=== PATIENT | male | born 1995 | race Two or more races ===

== ENCOUNTER 2017-02-13 07:30 | Day surgery (SDC) | payer SELFPAY ==
[2017-02-13] MEDS ORDERED: NORMAL SALINE 1000 ML 1,000 ML IV ONE (08:43)
--- NOTE | 2017-02-13 08:47 | ER Document Report ---
ED GI Bleed / Rectal Pain - General Mode of Arrival: Ambulatory Information source: Patient TRAVEL OUTSIDE OF THE [place] IN LAST 30 DAYS: No - HPI Patient complains to provider of: Rectal pain Associated symptoms: Other - See above <MIO SOLO - Last Filed: 02/13/17 08:50> <CONTRERAS SOMMERS - Last Filed: 02/13/17 11:22> - General Chief Complaint: Rectal Pain Stated Complaint: RECTAL PAIN Time Seen by Provider: 02/13/17 08:05 Notes: Patient is a 21 year old male, with no past medical or surgical history, who presents to the emergency department complaining of rectal pain onset 5 days ago. Patient believes he has a hemorrhoid as the pain began after a large bowel movement. Patient denies particularly hard stool. Patient has been using preparation H with no relief. (MIO SOLO) - Related Data Allergies/Adverse Reactions: No Known Allergies Allergy (Unverified 02/13/17 07:35) Home Medications: Current Home Medications No Home Medications 02/13/17 [History] Past Medical History - General Information source: Patient - Social History Smoking Status: Never Smoker Chew tobacco use (# tins/day): No Frequency of alcohol use: None Drug Abuse: None Family History: Reviewed & Not Pertinent Patient has suicidal ideation: No Patient has homicidal ideation: No Surgical Hx: Negative <MIO SOLO - Last Filed: 02/13/17 08:50> Review of Systems - Review of Systems Constitutional: No symptoms reported EENT: No symptoms reported Cardiovascular: No symptoms reported Respiratory: No symptoms reported Gastrointestinal: See HPI, Other - Rectal pain Genitourinary: No symptoms reported Male Genitourinary: No symptoms reported Musculoskeletal: No symptoms reported Skin: No symptoms reported Hematologic/Lymphatic: No symptoms reported Neurological/Psychological: No symptoms reported -: Yes All other systems reviewed and negative <MIO SOLO - Last Filed: 02/13/17 08:50> Physical Exam - Vital signs Interpretation: Normal - General General appearance: Appears well, Alert - HEENT Head: Normocephalic, Atraumatic - Respiratory Respiratory status: No respiratory distress Chest status: Nontender - Cardiovascular Rhythm: Regular Heart sounds: Normal auscultation Murmur: No - Rectal Tenderness: Yes - on left side lcose to anal sphincter is area of induration and swelling Hemorrhoids: None - Extremities General upper extremity: Normal inspection General lower extremity: Normal inspection - Neurological Neuro grossly intact: Yes Cognition: Normal Orientation: AAOx4 [place] Coma Scale Eye Opening: Spontaneous [place] Coma Scale Verbal: Oriented [place] Coma Scale Motor: Obeys Commands [place] Coma Scale Total: 15 Speech: Normal - Psychological Associated symptoms: Normal affect, Normal mood - Skin Skin Temperature: Warm Skin Moisture: Dry Skin Color: Normal <MIO SOLO - Last Filed: 02/13/17 08:50> Course - Consults Dr. Alejandro Time consulted: 08:40 <MIO SOLO - Last Filed: 02/13/17 08:50> - Laboratory Result Diagrams: 02/13/17 09:10 02/13/17 09:10 <CONTRERAS SOMMERS - Last Filed: 02/13/17 11:22> - Vital Signs Vital signs: Temp Pulse Resp BP Pulse Ox 98.6 F 80 16 137/59 H 99 02/13/17 09:31 02/13/17 09:31 02/13/17 09:31 02/13/17 09:31 02/13/17 09:31 - Laboratory Laboratory results interpreted by me: 02/13/17 02/13/17 09:10 09:10 Plt Count 101 L Seg Neutrophils % 80.3 H Lymphocytes % 9.5 L Absolute Neutrophils 8.4 H Total Bilirubin 1.7 H - Consults Dr. Alejandro Reason for consultation: 02/13/17 08:[address] Alejandro who requests he be made NPO and will come examine patient (MIO SOLO) Discharge <MIO SOLO - Last Filed: 02/13/17 08:50> - Discharge Admitting Provider: Surgicalist Unit Admitted: OR <CONTRERAS SOMMERS - Last Filed: 02/13/17 11:22> - Discharge Clinical Impression: Perianal abscess Condition: Stable Disposition: ADMITTED INPATIENT Scribe Attestation: 02/13/17 11:22 I personally performed the services described in the documentation, reviewed and edited the documentation which was dictated to the scribe in my presence, and it accurately records my words and actions. (CONTRERAS SOMMERS) Scribe Documentation - Scribe Written by Scribe:: dayan Olivares, 02/13/17, 0847 acting as scribe for :: aMrsha <MIO SOLO - Last Filed: 02/13/17 08:50>
--- NOTE | 2017-02-13 09:28 | HISTORY AND PHYSICAL E ---
History and Physical NAME: ANGEL CROW : 1995 AGE: 21Y ADMITTED: 02/13/2017 ROOM: CHIEF COMPLAINT: Left perirectal pain. HISTORY OF PRESENT ILLNESS: This is a 22-year-old male who has been complaining of left perirectal pains over the past 4 days. It started as mild pains on the left side of the rectum and getting worse. He felt a little lightheaded in the past. Last night, it got worse and subsequently went to the ER this morning. He took an ibuprofen this morning with a small sip of water. PAST HISTORY: Unremarkable. PAST SURGICAL HISTORY: [place] teeth removed. ALLERGIES: No known. SOCIAL HISTORY: Denies smoking; however, smokes marijuana almost on a daily basis. Denies regular alcohol use, maybe drinks occasionally. Recreational drug use; smokes marijuana almost every day. FAMILY HISTORY: Strong for diabetes. REVIEW OF SYSTEMS: As in HPI. Complaining of pains in the rectal area, worse with bowel movements. Denies any nausea or vomiting or dysuria. [place] lightheaded at one time when he had the most perirectal pains. No chest pains. No shortness of breath. Rest of the systems unremarkable. PHYSICAL EXAMINATION: GENERAL: A well-developed, well-nourished, 21-year-old male, alert and oriented, complaining of left perirectal pain. HEENT: Neck is supple. No thyromegaly. LUNGS: Clear. HEART: Regular sinus rhythm. ABDOMEN: Soft, nontender. RECTAL: Very tender on the left perirectal area. Was not able to complete a digital exam because of the pain. EXTREMITIES: No edema. IMPRESSION: Left perirectal abscess. PLAN: 1. IV fluids. 2. IV antibiotics. 3. I and D of perirectal abscess, possible fistulotomy if there indeed is a fistula in ano. DICTATING PHYSICIAN: ALF ESTEVEZ M.D. [id number] PHY#: [id number] ID: [id number] JOB#: [id number] ACCT: [id number] cc:ALF ESTEVEZ M.D. NO Leann TAPIA
[2017-02-13 09:35] LABS: ABSOLUTE EOSINOPHILS # (AUTO) 0.1 10^3/uL (0.0-0.6); ABSOLUTE MONOCYTES (AUTO) 0.9 10^3/uL (0.1-1.4); ABSOLUTE NEUT (AUTO) 8.4 10^3/uL (1.7-8.2); BASOPHILS % (AUTO) 0.4 % (0-2); EOSINOPHILS % (AUTO) 1.2 % (0-6); HEMATOCRIT 39.9 % (37.9-51.0); HEMOGLOBIN 13.8 g/dL (13.5-17.0); HGB HCT DIFFERENCE 1.5; LYMPHOCYTES % (AUTO) 9.5 % (13-45); MEAN CORPUSCULAR HGB CONC 34.6 g/dL (32.0-36.0); MEAN CORPUSCULAR VOLUME 90 fl (80-97); MONOCYTES % (AUTO) 8.6 % (3-13); RED BLOOD COUNT 4.45 10^6/uL (4.35-5.55); RED CELL DISTRIBUTION WIDTH 12.4 % (11.5-14.0); SEGMENTED NEUTROPHILS % (AUTO) 80.3 % (42-78); WHITE BLOOD COUNT 10.5 10^3/uL (4.0-10.5)
[2017-02-13] MEDS ORDERED: CIPROFLOXACIN 400 MG/D5W RTU 200 ML IV SCH (10:00)
[2017-02-13 10:02] LABS: ALANINE AMINOTRANSFERASE 27 U/L (21-72); ALBUMIN 4.3 g/dL (3.5-5.0); ALKALINE PHOSPHATASE 66 U/L (38-126); ANION GAP 11 (5-19); ASPARTATE AMINO TRANSFERASE 17 U/L (17-59); BILIRUBIN,DIRECT 0.3 mg/dL (0.0-0.4); BILIRUBIN,TOTAL 1.7 mg/dL (0.2-1.3); BLOOD UREA NITROGEN 14 mg/dL (7-20); CALCIUM 9.7 mg/dL (8.4-10.2); CARBON DIOXIDE 26 mmol/L (22-30); CHLORIDE 105 mmol/L (98-107); CREATININE RESULT 0.73 mg/dL (0.52-1.25); GLUCOSE 83 mg/dL (75-110); POTASSIUM 4.6 mmol/L (3.6-5.0); SODIUM 141.5 mmol/L (137-145); TOTAL PROTEIN 7.4 g/dL (6.3-8.2)
[2017-02-13] MEDS ORDERED: FENTANYL CITRATE INJ/PF 250 MCG/5 ML AMPULE ONE (10:25)
[2017-02-13] MEDS ORDERED: MIDAZOLAM 2 MG/2 ML INJ ONE (10:26)
[2017-02-13] MEDS ORDERED: PROPOFOL INJ 200 MG/20 ML VIAL IV ONE (10:26)
[2017-02-13] MEDS ORDERED: IBUPROFEN INJ 800 MG/8 ML VIAL IV ONE (10:26)
[2017-02-13] MEDS ORDERED: ONDANSETRON HCL INJ/PF 4 MG/2 ML SDV ONE (11:02)
[2017-02-13] MEDS ORDERED: GLYCOPYRROLATE INJ 0.4 MG/2 ML VIAL ONE (11:02)
[2017-02-13] MEDS ORDERED: METOCLOPRAMIDE HCL INJ/PF 10 MG/2 ML SDV ONE (11:02)
[2017-02-13] MEDS ORDERED: SUCCINYLCHOLINE CHLORIDE INJ 200 MG/10 ML VIAL ONE (11:02)
[2017-02-13] MEDS ORDERED: OXYCODONE-ACETAMINOPHEN 5-325 MG TABLET PO PRN (11:32)
[2017-02-13] MEDS ORDERED: MORPHINE SULFATE 10 MG/ML INJ IV PRN (11:34)
--- NOTE | 2017-02-13 12:09 | OPERATIVE REPORT E ---
Operative Report NAME: ANGEL CROW : 1995 AGE: 21Y DATE OF SURGERY: 02/13/2017 ROOM: PREOPERATIVE DIAGNOSIS: Left perianal abscess. POSTOPERATIVE DIAGNOSIS: Left perianal abscess. OPERATION: Incision and drainage of left perianal abscess. SURGEON: ALF ESTEVEZ M.D. ANESTHESIA: General. INDICATION: This is a 21-year-old male complaining of left perianal abscess for the past 5 days. The pain was getting worse until last night when he really had severe pains and then went to the emergency room. He had left perianal tenderness and an obvious abscess. DESCRIPTION OF PROCEDURE: After adequate general anesthesia, the patient was placed in lithotomy position and perianal area prepped and draped in the usual sterile fashion. Appropriate timeout was performed. Next rectal exam was done and no palpable lesions in the rectum noted; however, he had a fullness along the left perianal area. The mass in the left perianal area was noted and punctured right in the mid part about 2 cm from the anal verge. A gush of purulent material came out and the incision was then enlarged with the use of hemostat and specimens for cultures were obtained. The opening was enlarged to allow the finger to examine it. With the use of palpation and with the use of speculum, again no evidence of connection towards the rectum is noted and, therefore, no definite fistula noted at this time. The abscess cavity roughly measured about 2.5 cm in diameter and was then irrigated with saline solution. It was then packed with 1/4-inch Iodoform gauze. Bleeding was controlled with pressure especially along the skin site. A 4 x 4 was placed over the incision site and then an ABD pad placed over. Elastic underwear was placed to keep the dressings in place. The patient tolerated the procedure well and brought to recovery room in satisfactory condition. DICTATING PHYSICIAN: ALF ESTEVEZ M.D. [id number] PHY#: [id number] ID: [id number] JOB#: [id number] ACCT: [id number] cc:ALF ESTEVEZ M.D. >
[2017-02-13 13:19] VITALS: BP 103/62
--- NOTE | 2017-03-20 15:04 | DISCHARGE SUMMARY E ---
Discharge Summary NAME: ANGEL CROW : 1995 AGE: 21Y ADMITTED: 02/13/2017 DISCHARGED: 02/13/2017 PROCEDURE DONE: Incision and drainage of left perianal abscess. HOSPITAL COURSE: Patient complained about 5 days duration of perirectal pains. It got worse on the day of admission. An I and D of the perianal abscess was then performed on 02/13/2017. The area was then packed with Iodoform gauze. Patient felt better and decided to go home later that night on 02/13/2017. Prescription for antibiotic was given and pain medication. He was advised to go to the surgical clinic in 2 days to remove the packing. In the meantime, he can have a low residue diet and avoid any lifting more than 20 pounds for the next week. DICTATING PHYSICIAN: ALF ESTEVEZ M.D. [id number] PHY#: [id number] ID: [id number] JOB#: [id number] ACCT: [id number] cc:[facility], ALF GELLER M.D, M.D. >
== END 2017-02-13 13:15 | disposition home or self-care (01) ==
LOC: ER 07:30 → INOR 10:00 → UNDOADMIN 10:00 → OROUT 12:50
PROVIDERS: ATTEND Surgery
PROC: 0D9Q0ZZ Drainage of Anus, Open Approach (ICD-10-PCS; principal; 2017-02-13 10:00)
DX: K61.0 Anal abscess (principal); B96.20 Unspecified Escherichia coli [E. coli] as the cause of diseases classified elsewhere; B95.4 Other streptococcus as the cause of diseases classified elsewhere; B95.61 Methicillin susceptible Staphylococcus aureus infection as the cause of diseases classified elsewhere; B96.89 Other specified bacterial agents as the cause of diseases classified elsewhere
CPT/HCPCS: 99284; 96360; 36415; 87070; 87205; 85025; 87075; 87077; 80053; 87186; 46050; J2250; J3010; J2765; J0330; J2405; J7030; J2704; J1741; 902; A6266